=== PATIENT | female | born 1965 | race African-American/Black ===

== ENCOUNTER 2021-11-14 19:43 | Emergency (ER) | payer MEDICAID, OTHER ==
[~2021-11-14] VITALS: Ht 167.6 cm; Wt 117.7 kg
[2021-11-14] MEDS ORDERED: IBUP-2028 MT (23:20)
[2021-11-14] MEDS ORDERED: LIDO1ADH23 TP (23:20)
[2021-11-14] MEDS ORDERED: TOPUD PO (23:20)
[2021-11-15 00:46] VITALS: BP 132/89
== END 2021-11-15 00:48 | disposition home or self-care (01) ==
LOC: ER 19:43
DX: S83.91XA Sprain of unspecified site of right knee, initial encounter (principal); X58.XXXA Exposure to other specified factors, initial encounter; Y93.9 Activity, unspecified; Y92.89 Other specified places as the place of occurrence of the external cause; Y99.8 Other external cause status
CPT/HCPCS: 93970; 99284

== ENCOUNTER 2022-09-06 12:33 | Emergency (ER) | payer OTHER ==
[~2022-09-06] VITALS: Ht 167.6 cm; Wt 80.0 kg
[~2022-09-06 12:33] MED LIST: IBUP-2028 MT; LIDO1ADH23 TP; TOPUD PO
[2022-09-06] MEDS ORDERED: HYDROCODONE/ACETAMINOPHEN 5/325MG TABLET PO ONE (15:15)
[2022-09-06 15:57] VITALS: BP 144/93
[2022-09-06 16:14] LABS: CLARITY URINE CLEAR (CLEAR); COLOR URINE DARK YELLOW (YELLOW); KETONES URINE NEGATIVE (NEGATIVE); LEUKOCYTE ESTERASE URINE 2+ (NEGATIVE); NITRITE URINE POSITIVE (NEGATIVE); OCCULT BLOOD URINE NEGATIVE (NEGATIVE); PROTEIN URINE NEGATIVE (NEGATIVE); SPECIFIC GRAVITY URINE 1.016 (1.005-1.030)
[2022-09-06] MEDS ORDERED: CEFTRIAXONE SODIUM 1 G/VIAL IM ONE (17:00)
[2022-09-06] MEDS ORDERED: ACET-2708 MT ×3 (17:03→17:28)
[2022-09-06] MEDS ORDERED: AMOX1TAB16 MT ×3 (17:03→17:28)
[2022-09-06] MEDS ORDERED: MED4 MT (17:28)
== END 2022-09-06 18:00 | disposition home or self-care (01) ==
LOC: ER 12:42
DX: M54.30 Sciatica, unspecified side (principal); N39.0 Urinary tract infection, site not specified; M19.90 Unspecified osteoarthritis, unspecified site; I10 Essential (primary) hypertension; H40.9 Unspecified glaucoma
CPT/HCPCS: 81003; 81025; 87086; 93971; 96372; 99285; J0696; Z7610

== ENCOUNTER 2023-04-19 12:38 | Emergency (ER) | payer OTHER ==
[~2023-04-19] VITALS: Ht 167.6 cm; Wt 120.0 kg
[~2023-04-19 12:38] MED LIST changes: +ACET-2708 MT; +AMOX1TAB16 MT; +MED4 MT
[2023-04-19 12:59] VITALS: TEMP 98.4; O2SAT 100
[2023-04-19 13:30] VITALS: BP 160/76; PULSE 71; RESP 16
[2023-04-19] MEDS ORDERED: KETOROLAC 30MG/ML VIAL IM ONE (13:30)
[2023-04-19 14:06] LABS: CLARITY URINE CLEAR (CLEAR); COLOR URINE DARK YELLOW (YELLOW); GLUCOSE URINE NEGATIVE (NEGATIVE); KETONES URINE NEGATIVE (NEGATIVE); LEUKOCYTE ESTERASE URINE 1+ (NEGATIVE); NITRITE URINE POSITIVE (NEGATIVE); OCCULT BLOOD URINE NEGATIVE (NEGATIVE); PROTEIN URINE NEGATIVE (NEGATIVE); SPECIFIC GRAVITY URINE 1.012 (1.005-1.030)
[2023-04-19] MEDS ORDERED: LIDO1ADH23 TP (14:10)
[2023-04-19] MEDS ORDERED: CEPH500C2 MT (14:10)
[2023-04-19 14:34] LABS: SQUAMOUS EPITHELIAL CELL URINE 2+ /lpf (RARE/1+)
[2023-04-19 14:35] LABS: WBC URINE 0-2 /hpf (0-2)
[2023-04-19 14:36] LABS: BACTERIA URINE TRACE; RBC URINE 0-2 /hpf (0-2)
== END 2023-04-19 15:02 | disposition home or self-care (01) ==
LOC: ER 12:38
DX: G89.29 Other chronic pain (principal); M54.50 Low back pain, unspecified; N39.0 Urinary tract infection, site not specified; I10 Essential (primary) hypertension; Z79.899 Other long term (current) drug therapy
CPT/HCPCS: 81003; 96372; 99283; J1885; Z7610 ×2

== ENCOUNTER 2024-06-09 16:05 | Emergency (ER) | payer MEDICAID, OTHER ==
[~2024-06-09] VITALS: Ht 167.6 cm; Wt 121.0 kg
[~2024-06-09 16:05] MED LIST changes: +CEPH500C2 MT; -MED4 MT; +METH4TAB95 MT
[2024-06-09 16:18] VITALS: O2SAT 98
[2024-06-09 17:02] LABS: BASOPHILS % 1.3 % (0.0-2.0); EOSINOPHILS % 0.7 % (0.0-5.0); HEMATOCRIT. 40.8 % (36.0-48.0); HEMOGLOBIN. 13.6 g/dL (12.0-16.0); LYMPHOCYTES % 21.3 % (20.0-50.0); MEAN CORPUSCULAR HEMOGLOBIN 29.5 pg (28.0-32.0); MEAN CORPUSCULAR HGB CONC 33.3 g/dL (31.0-37.0); MEAN CORPUSCULAR VOLUME 88.6 fL (81.0-99.0); MEAN PLATELET VOLUME 9.3 fl (7.4-10.4); MONOCYTES % 7.3 % (2.0-8.0); NEUTROPHILS % 69.4 % (40.0-76.0); PLATELET 293 x1000/uL (130-400); RED BLOOD CELL COUNT 4.61 mill/uL (4.2-5.4); RED CELL DISTRIBUTION WIDTH 15.7 % (11.6-14.6); WHITE BLOOD COUNT 10.4 x1000/uL (4.5-11.0)
[2024-06-09 17:25] LABS: CHLORIDE 104 mEq/L (98-107); POTASSIUM 3.5 mEq/L (3.5-5.1); SODIUM 142 mEq/L (136-145)
[2024-06-09 17:26] LABS: CALCIUM 10.4 mg/dL (8.7-10.4); CARBON DIOXIDE 32 mEq/L (21-32)
[2024-06-09 17:31] LABS: CREATININE 0.9 mg/dL (0.6-1.0); GLUCOSE 115 mg/dL (70-105); UREA NITROGEN BLOOD 13 mg/dL (9-23)
[2024-06-09 17:39] LABS: CLARITY URINE CLEAR (CLEAR); COLOR URINE YELLOW (YELLOW); GLUCOSE URINE NEGATIVE (NEGATIVE); KETONES URINE NEGATIVE (NEGATIVE); LEUKOCYTE ESTERASE URINE TRACE (NEGATIVE); NITRITE URINE NEGATIVE (NEGATIVE); OCCULT BLOOD URINE 2+ (NEGATIVE); PH URINE 6.5 (4.5-8.0); PROTEIN URINE NEGATIVE (NEGATIVE); SPECIFIC GRAVITY URINE 1.021 (1.005-1.030); UROBILINOGEN URINE 0.2 E.U./dL (0.2-1.0)
[2024-06-09 18:05] LABS: BACTERIA URINE NONE SEEN; SQUAMOUS EPITHELIAL CELL URINE FEW /lpf (RARE/1+)
[2024-06-09] MEDS ORDERED: CYCL5TAB3 MT (18:51)
[2024-06-09] MEDS ORDERED: CEPH500C2 MT (18:51)
[2024-06-09 19:55] VITALS: BP 144/70; PULSE 68; RESP 18; TEMP 37.00296; O2SAT 97
[2024-06-09] MEDS: ACETAMINOPHEN 325MG TABLET PO ONE (20:06)
[2024-06-09] MEDS: KETOROLAC 30MG/ML VIAL IM ONE (20:06)
== END 2024-06-09 20:21 | disposition home or self-care (01) ==
LOC: ER 16:05
DX: N39.0 Urinary tract infection, site not specified (principal); M25.519 Pain in unspecified shoulder; I10 Essential (primary) hypertension; M62.838 Other muscle spasm
CPT/HCPCS: 99283; 80048; 81003; 85025; 36415; J1885

== ENCOUNTER 2024-10-06 17:40 | Emergency (ER) | payer MEDICAID, OTHER ==
[~2024-10-06] VITALS: Ht 165.1 cm; Wt 119.7 kg
[~2024-10-06 17:40] MED LIST changes: +CYCL5TAB3 MT
[2024-10-06 17:41] VITALS: O2SAT 99
[2024-10-06 17:44] VITALS: BP 186/73; PULSE 93; RESP 14; TEMP 36.7; O2SAT 100
[2024-10-06] MEDS: LIDOCAINE HCL/PF 1% 10 MG/ML 5ML VIAL INFIL ONE (18:30)
[2024-10-06] MEDS: TETANUS, DIPHTHERIA, PERTUSSIS VAC/PF 0.5ML (>10YR OLD) IM ONE (18:30)
[2024-10-06] MEDS: BACITRACIN ZINC OINT UDPKT TOP ONE ×2 (18:30→21:52)
[2024-10-06 19:53] VITALS: TEMP 98
[2024-10-06] MEDS: ACETAMINOPHEN 325MG TABLET PO ONE (19:53)
[2024-10-06] MEDS ORDERED: NITR-87 MT (21:45)
== END 2024-10-06 21:53 | disposition home or self-care (01) ==
LOC: ER 17:40
DX: S61.411A Laceration without foreign body of right hand, initial encounter (principal); I10 Essential (primary) hypertension; M19.90 Unspecified osteoarthritis, unspecified site; X58.XXXA Exposure to other specified factors, initial encounter; Y93.89 Activity, other specified; Y92.89 Other specified places as the place of occurrence of the external cause; Y99.8 Other external cause status
CPT/HCPCS: 12001; 99283